=== PATIENT | male | born 1980 | race Caucasian/White ===

== ENCOUNTER 2020-09-17 07:07 | Day surgery (SDC) | payer OTHER ==
[~2020-09-17] VITALS: Ht 182.9 cm; Wt 76.2 kg
[~2020-09-17 07:07] MED LIST: BUPIVACAINE/PF 0.5% ONE; LIDOCAINE-MPF 1%, 5ML ONE
[2020-09-17 07:30] VITALS: BP 115/76
[2020-09-17] MEDS ORDERED: NONE PER PT (07:40)
[2020-09-17] MEDS: LACTATED RINGERS 1,000 ML IV SCH ×2 (07:59→11:02)
[2020-09-17] MEDS ORDERED: CHLORHEXIDINE 15 ML UDC MM ONE (08:00)
[2020-09-17] MEDS ORDERED: MIDAZOLAM 1 MG/ML, 2ML ONE (09:23)
[2020-09-17] MEDS ORDERED: CEFAZOLIN 1,000 MG ONE (09:24)
[2020-09-17] MEDS ORDERED: ONDANSETRON 2MG/ML, 2ML ONE (09:24)
[2020-09-17] MEDS ORDERED: DEXAMETHASONE 4 MG/ML, 1ML ONE (09:24)
[2020-09-17] MEDS ORDERED: KETOROLAC 30 MG/1 ML ONE (09:24)
[2020-09-17] MEDS ORDERED: FENTANYL PF 250 MCG/5ML ONE (09:24)
[2020-09-17] MEDS ORDERED: PROPOFOL 10 MG/ML, 20ML ONE (09:24)
[2020-09-17] MEDS ORDERED: OXYcodone 5 MG/5 ML ORAL.SOL UDC PO PRN (10:00)
[2020-09-17] MEDS ORDERED: ACETAMINOPHEN 325 MG TABLET PO PRN (10:00)
[2020-09-17] MEDS ORDERED: ONDANSETRON 2MG/ML, 2ML IVPush PRN (10:00)
[2020-09-17] MEDS ORDERED: hydrALAzine 20 MG/ML, 1ML IV PRN (10:00)
[2020-09-17] MEDS ORDERED: LABETALOL 5MG/ML, 20ML IV PRN (10:00)
[2020-09-17] MEDS ORDERED: HYDROmorphone 1 MG/ML, 1ML INJ IVPush PRN (10:00)
[2020-09-17] MEDS ORDERED: MEPERIDINE/PF 25MG/0.5ML IVPush PRN (10:00)
[2020-09-17] MEDS ORDERED: FENTANYL PF 100 MCG/2ML ONE ×2 (10:09→10:25)
[2020-09-17] MEDS: FENTANYL PF 100 MCG/2ML IV PRN ×3 (10:15→10:38)
[2020-09-17] MEDS ORDERED: ACETAMINOPHEN 650 MG/20.3 ML UDC ONE (10:24)
[2020-09-17] MEDS ORDERED: OXYcodone 5 MG/5 ML ORAL.SOL UDC ONE (10:25)
[2020-09-17] MEDS ORDERED: MEPERIDINE/PF 25MG/ML,1ML ONE (10:39)
[2020-09-17] MEDS ORDERED: DIPHENHYDRAMINE 25 MG CAPSULE PO ONE (11:00)
== END 2020-09-17 11:40 | disposition home or self-care (01) ==
LOC: OUT 07:07
PROVIDERS: ATTEND Orthopaedic Surgery
DX: S62.336A Displaced fracture of neck of fifth metacarpal bone, right hand, initial encounter for closed fracture (principal); Z20.822 Contact with and (suspected) exposure to COVID-19; Z79.899 Other long term (current) drug therapy; Z87.891 Personal history of nicotine dependence; W17.89XA Other fall from one level to another, initial encounter; Y93.H3 Activity, building and construction; Y92.69 Other specified industrial and construction area as the place of occurrence of the external cause; Y99.0 Civilian activity done for income or pay
CPT/HCPCS: 26615; 73120; 87635; C1776; J0690; J1100; J1885; J2175; J2250; J2405; J2704; J3010; J7120; 76000